=== PATIENT | male | born 1950 | race Caucasian/White ===

== ENCOUNTER 2019-02-26 08:46 | Emergency (ER) | payer MEDICARE, OTHER ==
[~2019-02-26] VITALS: Ht 236.2 cm; Wt 90.1 kg
[2019-02-26 08:51] VITALS: BP 158/74; PULSE 77; RESP 18; Ht 236.2 cm; Wt 90.1 kg
--- NOTE | 2019-02-26 09:32 | ERD ---
ER Documentation Chief Complaint Chief Complaint LT SHOULDER PAIN , ONSET THURSDAY NIGHT HPI This is a 68-year-old male with a past medical history of arthritis and low back pain status post back surgery who is presenting with left shoulder pain. The patient reports that he felt like he may have tweaked his neck. He has left- sided paraspinal neck pain radiating into the right shoulder. The right shoulder is tender to palpation. He also endorses pain with range of motion. He does not endorse any trauma or injury. The patient symptoms are exacerbated by movement of the left shoulder. He did take 800 mg of ibuprofen this morning and put ice on the shoulder with some improvement of his discomfort. The patient denies feeling sick recently. The patient denies fever or chills. The patient has had no headache or vision changes. The patient does not endorse neck or back pain. The patient denies lightheadedness or dizziness. The patient has had no chest pain or trouble breathing. The patient denies nausea or vomiting. The patient denies abdominal pain. The patient denies changes to bowel movements or urination. The patient has had no focal deficits. The patient has had no weakness or numbness or tingling to the face or extremities. ROS All systems reviewed and are negative except as per history of present illness. Allergies Allergies: Coded Allergies: No Known Allergy (Unverified , 02/26/19) PMhx/Soc History of Surgery: Yes (back,eye) Anesthesia Reaction: No Hx Neurological Disorder: No Hx Respiratory Disorders: No Hx Cardiac Disorders: No Hx Psychiatric Problems: No Hx Miscellaneous Medical Probl: No Hx Alcohol Use: No Hx Substance Use: No Hx Tobacco Use: Yes Smoking Status: Former smoker FmHx Family History: No diabetes Physical Exam Vitals Vital Signs Date Temp Pulse Resp B/P (MAP) Pulse Ox O2 O2 Flow FiO2 Time Delivery Rate 02/26/19 97.6 77 18 158/74 98 08:51 (102) Physical Exam Const: No acute distress Head: Atraumatic Eyes: Normal Conjunctiva ENT: Normal External Ears, Nose and Mouth. Neck: No midline tenderness. No step-offs or deformities. Full range of motion. No meningismus. Resp: Clear to auscultation bilaterally Cardio: Regular rate and rhythm, no murmurs Abd: Soft, non tender, non distended. Normal bowel sounds Skin: No petechiae or rashes Back: No midline or flank tenderness. Midline surgical scar. Ext: No cyanosis, or edema. Tenderness to palpation of the left anterior and posterior shoulder. Difficulty with active range of motion above 90 degrees of the left shoulder, reproducing his pain. Neur: Awake and alert Psych: Normal Mood and Affect Procedures/MDM MDM The patient presents for nontraumatic left shoulder pain. I do suspect a musculoskeletal etiology. Calcific tendinopathy is a possibility. Cervical spinal stenosis and cervical radiculopathy is also possibility. Degenerative arthritis is a possibility. A rotator cuff strain or overuse injury is also possible. The patient symptoms appear isolated to this region. I do not suspect referred pain. The patient does not endorse any trauma. I have low suspicion for fracture or dislocation. The patient does not endorse any chest pain or shortness of breath or lightheadedness or dizziness or nausea or diaphoresis. His symptoms are not consistent with a cardiopulmonary process. I do not suspect acute coronary syndrome. DISCHARGE Upon reevaluation of the patient, symptoms have improved. No emergent diagnoses were identified. At this time, I feel that the patient stable for discharge. The patient was instructed to follow-up with a primary care physician in 1-3 days. The patient will be given strict precautions with which to return to the emergency department. Prescriptions: Flexeril, ibuprofen The patient's blood pressure was elevated at greater than 120/80 while in the emergency department. The patient was otherwise stable with no evidence of hypertensive urgency or emergency. The patient does not require admission for blood pressure control. I have discussed with the patient the risks of hypertension. I have instructed the patient to return to the ER for any new or worsening symptoms including chest pain, shortness of breath, headache, blurred vision, confusion, nausea, vomiting or LOC. I have advised the patient to follow up with the primary care physician for outpatient monitoring and treatment for hypertension in 1-3 days. Disclaimer: Inadvertent spelling and grammatical errors are likely due to EHR/dictation software use and do not reflect on the overall quality of patient care. Note that the electronic time recorded on this note does not necessarily reflect the actual time of the patient encounter. Departure Diagnosis: Primary Impression: Shoulder pain Chronicity: acute Laterality: left Qualified Codes: M25.512 - Pain in left shoulder Condition: Stable Patient Instructions: Shoulder Problems Additional Instructions: Thank you for for coming to [facility] for your care today. Please ask your nurse or provider if you have questions about your care today and do not leave until all your questions have been answered. Please use any medications given as directed and follow-up with your doctor (or the doctor you were referred to) in the next 1-3 days. If you do not have a primary care doctor you may follow up at the [facility] or [facility] (listed below). You may also use motrin and tylenol as needed for fever and/or pain unless instructed otherwise by your provider or nurse. Indications for more urgent follow-up have been discussed, but you may return to the Emergency Department at ANY time for any worrisome or worsening symptoms. If you have abdominal pain, please know that no test or exam you received is perfect and you should follow up within 8 hours for continued pain. If you had any imaging studies today, such as an X-Ray or CT Scan, these studies will be reviewed later by a radiologist. You will be called if there are important findings that were not identified today, so make sure the contact information you provided at registration is correct. If you received any narcotic pain control medicine today, such as Vicodin, Morphine or Dilaudid, your coordination and judgment may be affected for a number of hours. Please do not drive or operate heavy machinery, and you may want someone to assist you at home. If you were given a prescription for narcotic medication, be aware that it is very addictive- use sparingly and only if necessary. PLEASE SEEK FURTHER EVALUATION AND MANAGEMENT AT YOUR DOCTORS OFFICE WITHIN THE NEXT 1-3 DAYS. IT IS YOUR RESPONSIBILITY TO MAKE AN APPOINTMENT FOR FOLOW-UP CARE. IF YOU HAVE A PRIMARY DOCTOR, PLEASE CALL THEIR OFFICE TO SCHEDULE AN APPOINTMENT FOR FOLLOW UP. IF YOU DO NOT HAVE A PRIMARY DOCTOR YOU CAN CALL OUR PHYSICIAN REFERRAL HOTLINE AT IF YOU CAN NOT AFFORD TO SEE A PHYSICIAN YOU CAN CHOSE FROM THE FOLLOWING [facility] CLINICS: [facility] [address] [facility] [address] [facility] [address] [facility] [address] [facility] [address] [facility] [facility] [address] MANAS ZARAGOZA MD Feb 26, 2019 09:32
[2019-02-26] MEDS ORDERED: IBUP-1542 PO (09:34)
[2019-02-26] MEDS ORDERED: CYCL5TAB PO (09:34)
[2019-02-26] MEDS ORDERED: DIAZEPAM 5 MG/ML SYG IM ONE (10:00)
== END 2019-02-26 09:50 | disposition home or self-care (01) ==
LOC: FTE 08:46
DX: M25.512 Pain in left shoulder (principal); Z87.891 Personal history of nicotine dependence
CPT/HCPCS: 96372; 99284; J3360